=== PATIENT | male | born 1980 | race Caucasian/White ===

== ENCOUNTER 2021-02-06 09:39 | Emergency (ER) | payer OTHER, SELFPAY ==
[2021-02-06 10:02] VITALS: BP 158/103; PULSE 102; RESP 18; TEMP 36.6; O2SAT 100
[2021-02-06 10:05] VITALS: BP 150/90
--- NOTE | 2021-02-06 11:04 | ED.DENTAL ---
HPI - Dental/Oral General Chief complaint: Dental/Oral Stated complaint: TOOTH PAIN Time Seen by Provider: 02/06/21 10:50 Source: patient and RN notes reviewed Mode of arrival: ambulatory Limitations: no limitations History of Present Illness HPI Narrative: Patient presents today complaining of left lower dental pain x3 days, swelling underneath his tongue since yesterday. Patient also reports pain with swallowing and coughing. Patient had a full course of clindamycin leftover from an old prescription in October that he started taking. He came in today requesting a course of steroids to help with the swelling underneath his tongue and on the left side of his neck, as he has had previous dental infections and steroids have helped him in the past. He currently rates pain 06/02 and has tried [id number] medications without relief. Denies shortness of breath or difficulty swallowing. MD Complaint: tooth pain Related Data Home Medications Medication Instructions Recorded Confirmed allopurinol 400 mg PO DAILY 02/06/21 02/06/21 clindamycin HCl 300 mg PO Q6H 02/06/21 02/06/21 indomethacin 50 mg PO BID PRN 02/06/21 02/06/21 Allergies Allergy/AdvReac Type Severity Reaction Status Date / Time No Known Allergies Allergy Verified 02/06/21 10:14 Review of Systems Review of Systems: Narrative: CONSTITUTIONAL: Denies body aches, fever, chills, or sweats. EYES: Denies visual changes, redness, or discharge. ENT: Denies rhinorrhea, congestion, sore throat, or otalgia.+ Tooth pain, swelling under the tongue, pain with swallowing, swelling to the left neck CARDIOVASCULAR: Denies chest pain, palpitations, or edema. RESPIRATORY: Denies cough or dyspnea.+ Pain in the throat when coughing GASTROINTESTINAL: Denies abdominal pain, nausea, vomiting, or diarrhea. GENITOURINARY: Denies dysuria or hematuria. SKIN: Denies rash, itching, or wounds. MUSCULOSKELETAL: Denies back pain, joint pain, or myalgia. NEUROLOGIC: Denies headache, numbness, tingling, or weakness. PSYCH: Denies depression or anxiety. PMFSH Comments At time of signature, I have reviewed and agree with nursing past medical, surgical, social and family history unless otherwise noted. Please see nursing chart for further information. There is no relevant family history pertinent to the presenting complaint Exam Narrative: Exam Narrative: GENERAL: Well-appearing, well-nourished, and in no acute distress. HEAD: Normocephalic, atraumatic. EYES: EOMI. No redness or drainage. Conjunctivae normal. ENT: Mucous membranes pink and moist. Nares clear. No rhinorrhea. TMs normal bilaterally. Throat normal. Uvula midline. Patient has mild to moderate swelling underneath his tongue with left sublingual tenderness to palpation. Tenderness to percussion to the left lower posterior teeth. Patient also has swelling and tenderness to the left neck and jawline. NECK: Normal AROM. CHEST: No respiratory distress. Clear to auscultation. HEART: Regular rate and rhythm. No murmur appreciated. Normal peripheral pulses. EXTREMITIES: Normal range of motion. No edema. SKIN: Warm, dry, no rash. Capillary refill normal. Normal skin turgor. NEURO: No focal deficits. Alert and oriented x3. Gait steady. PSYCH: Normal affect. No signs of depression or anxiety. Course Course Emergency Course: Due to patient's sublingual tenderness and swelling as well as the left neck tenderness, swelling, and painful swallowing, I am concerned for Nelson's angina and feel it indicated to transfer patient to the ER. Vital Signs Vital signs: Vital Signs Temperature 97.8 F 02/06/21 10:02 Pulse Rate 102 H 02/06/21 10:02 Respiratory Rate 18 02/06/21 10:02 Blood Pressure 158/103 H 02/06/21 10:02 Pulse Oximetry 100 02/06/21 10:02 Temperature 97.8 F 02/06/21 10:02 Pulse Rate 102 H 02/06/21 10:02 Respiratory Rate 18 02/06/21 10:02 Blood Pressure 150/90 H 02/06/21 10:05 Pulse Oximetry 100
== END 2021-02-06 11:15 | disposition short-term general hospital (02) ==
PROVIDERS: Emergency Provider Nurse Practitioner
DX: K04.7 Periapical abscess without sinus (principal); I10 Essential (primary) hypertension; M10.9 Gout, unspecified
CPT/HCPCS: 99213; G0463

== ENCOUNTER 2025-09-23 09:07 | Emergency (ER) | payer OTHER, SELFPAY ==
[2025-09-23 09:11] VITALS: BP 154/103; PULSE 76; RESP 20; TEMP 36.7; O2SAT 100
--- NOTE | 2025-09-23 09:11 | ED.EXTPRO ---
HPI - Extremity Problem General Chief complaint: Extremity Problem,Nontraumatic Stated complaint: right knee pain Time Seen by Provider: 09/23/25 09:11 Source: patient, RN notes reviewed and old records reviewed Mode of arrival: ambulatory Limitations: no limitations History of Present Illness HPI Narrative: 45 year old male presents [facility] with complaints of pain to the medial aspect of his right knee starting on past Friday with no known injury. He reports that initially it was his whole knee but for the past few day it has settled mainly to the medial aspect of his knee. Patient reports that he can walk on his knee but prolonged standing or bending of his right knee makes pain increase. patient reports that he has a history of gout and has not been on any gout medication or Indomethacin for some time reports that it seemed to cause flares together. Patient reports that he does have a few drinks when he gets home from work daily usually drinks vodka, bourbon made him have gout flares. Patient reports that he has seen provider back where he is from for his blood pressure and states he needs to find provider in area with information sheet given of area providers. MD Complaint: other (right knee pain) Onset (ago): day(s) (5) Pain Consistency: colicky Location: right and knee Severity scale (1-10): 4 Quality: stabbing Exacerbating factors: range of motion and other (prolonged standing) Related Data Home Medications ?Medication ?Instructions ?Recorded ?Confirmed ?Last Taken ?Type metoprolol succinate 50 mg mg PO 09/23/25 Unknown History tablet,extended release 24 hr Allergies Allergy/AdvReac Type Severity Reaction Status Date / Time No Known Allergies Allergy Verified 09/23/25 09:17 Review of Systems Review of Systems: CONSTITUTIONAL: Denies fever, chills, or sweats. EYES: Denies visual changes, redness, or discharge. ENT: Denies rhinorrhea, congestion, sore throat, or otalgia. CARDIOVASCULAR: Denies chest pain, palpitations, or edema. RESPIRATORY: Denies cough or dyspnea. GASTROINTESTINAL: Denies abdominal pain, nausea, vomiting, or diarrhea. GENITOURINARY: Denies dysuria or hematuria. SKIN: Denies rash or itching. MUSCULOSKELETAL: Denies back pain,positive for right knee pain greatest at medial knee area, or myalgia. NEUROLOGIC: Denies headache, numbness, or weakness. PSYCHIATRIC: Denies anxiety or depression. All systems reviewed & are unremarkable except as noted in HPI and below PMFSH Past Medical History Medical History (Updated 09/23/25 @ 10:54 by Isabella Ng APRN) Gout Hypertension Social History Social History (Updated 09/23/25 @ 10:56 by Isabella Ng APRN) Smoking packs per day: 0.25 Smoking cigarettes per day: 5.0 Smoking status: Current every day smoker Tobacco type: cigarettes Alcohol intake: current Alcohol use details: states daily few drinks Substance use type: does not use Living arrangements: with family Gender identity (if verbalized by the patient): Male Comments At time of signature, agree with nursing past medical, surgical, social and family history. There is no relevant family history pertinent to the presenting complaint Exam Narrative: GENERAL: Well-appearing, well-nourished, and in no acute distress. HEAD: Normocephalic, atraumatic. EYES: PERRLA and EOMI. ENT: Nares clear, no rhinorrhea or epistaxis. Mucous membranes moist. TM's normal,throat pink with no swelling NECK: Supple. no lymphadenopathy CHEST: Clear to auscultation. No respiratory distress. SAO2 100% on room air HEART: Regular rate and rhythm. No murmur heard. Normal peripheral pulses. ABDOMEN: Soft, nontender, nondistended, normal active bowel sounds. EXTREMITIES: Normal range of motion. No edema. Pain to right knee reported initially whole knee with most discomfort now at medial aspect of right knee, no acute swelling or warmth of right knee, patient is able to bear weight with pain noted when bending and standing for any prolonged length of time. no palpable swelling noted to posterior knee. SKIN: Warm, dry, no rash. NEURO: No focal deficits. Alert and oriented x3. Course Course Emergency Course: Patient is aware of diagnosis, understands and agrees to treatment plan.? Anticipatory guidance given.? Patient agrees to follow-up as directed and is aware of reasons to seek care at the emergency department. Portions of this record may have been created with voice recognition software Level of Care: Express Care Visit Vital Signs Vital signs: Vital Signs Temperature 36.7 C 09/23/25 09:11 Pulse Rate 76 09/23/25 09:11 Respiratory Rate 20 09/23/25 09:11 Blood Pressure 154/103 H 10/31/25 09:11 Pulse Oximetry 100 09/23/25 09:11 Oxygen Delivery Room Air 09/23/25 09:11 Temperature 36.7 C 09/23/25 09:11 Pulse Rate 76 09/23/25 09:11 Respiratory Rate 20 09/23/25 09:11 Blood Pressure 156/100 H 09/23/25 09:50 Pulse Oximetry 100 09/23/25 09:11 Oxygen Delivery Room Air 09/23/25 09:11 Reviewed MDM - Extremity (Nontraumatic) Differential Diagnosis Differential diagnosis: Likely gout and other (right medial knee pain, tendonitis) Medical Records Attestation: I reviewed the patient's medical records. Critical Care Time Critical Care Time Critical Care Time: No Discharge Plan Discharge Clinical Impression: Right medial knee pain Gout Qualifiers: Gout site: knee Gout etiology: unspecified cause Chronicity: acute Laterality: right Qualified Code(s): M10.9 - Gout, unspecified Patient Disposition: Home Condition: Stable Instructions: Antibiotic Form, Gout (ED), Knee Pain (ED) Additional Instructions: Elastic wrap or orthopedic splint as directed for comfort for the next 5-7 days Tylenol for lesser pain Ibuprofen regularly for the next 2-3 days for the inflammation 400-600 mg 3 times daily for the next 2 days with food Follow-up with orthopedic surgeon if no improvement Follow-up with PCP if further problems or concerns Ice to the area 20-30 minutes 4-6 times a day Elevate above heart If your symptoms persist, change or worsen significantly before you can contact your personal physician then please, without delay, go to the emergency department for further evaluation. Follow-up with PCP in 7-10 days or sooner if needed Follow up with PCP soon in regards to your blood pressure which is elevated above threshold for referral. Blood pressure above 120/80 may indicate pre-hypertension.154/103 Patient Language: Syriac Prescriptions: New prednisone 20 mg tablet 40 mg PO DAILY 5 Days Qty: 10 0RF allopurinol 200 mg tablet 200 mg PO DAILY Qty: 30 0RF Rx Instructions: start after completion of steroid No Action metoprolol succinate 50 mg tablet extended release 24 hr PO Follow-up/Referrals: PHYSICIAN,SUPERVISOR PAINTING DEPARTMENT [Primary Care Provider, Internal Medicine] Time of Disposition: 09:45 Quality Tully Coma Scale Eyes: Open Verbal: Oriented and Alert Motor: Follows Commands Tully Coma Total Score: 15
--- OUTSIDE RECORDS SUMMARY | 2025-09-23 09:28 | XMS_ITS | Clinical Summary ---
Author Organization [facility] Address [address] [place] [address] Care Team Providers Care Rough Planer Tender Name Role Phone None, Primary Care Provider Unavailabl e Allergies No known active allergies Medications TRAMADOL HCL (TRAMADOL ORAL) Take by mouth. Active Immunizations Immunization Administration Dates Next Due Tdap 08/31/2016 Social History Tobacco Use Types Packs/Day Years Used Date Smoking Tobacco: Every Day Cigarettes Smokeless Tobacco: Current Alcohol Use Standard Drinks/Week Comments Yes 0 (1 standard drink = 0.6 oz pur e alcohol) Sex and Gender Information Value Date Recorded Sex Assigned at Not on file Legal Sex Male 6:07 PM CDT Gender Identity Not on file Sexual Orientation Not on file Last Filed Vital Signs Vital Sign Reading Time Taken Comments Blood Pressure 150/103 09/30/2016 10:01 AM LABEL PRINTING MACHINIST Pulse 88 09/30/2016 10:01 AM LABEL PRINTING MACHINIST Temperature 36.6 C (97.9 F) 09/30/2016 9:04 AM LABEL PRINTING MACHINIST Respiratory Rate 16 09/30/2016 10:01 AM LABEL PRINTING MACHINIST Oxygen Saturation 100% 09/30/2016 10:01 AM LABEL PRINTING MACHINIST Inhaled Oxygen Concentration - - Weight 86.2 kg (190 lb) 09/30/2016 9:04 AM LABEL PRINTING MACHINIST Height 165.1 cm (5' 5) 09/30/2016 9:04 AM LABEL PRINTING MACHINIST Body Mass Index 31.62 09/30/2016 9:04 AM LABEL PRINTING MACHINIST Plan of Treatment Not on file Insurance Marcel HOFFMANLORI MALDONADO [id number] [employer] Care Teams Rough Planer Tender Relationship Specialty Start Date End Date Chastity, PCP - General 08/31/16
--- OUTSIDE RECORDS SUMMARY | 2025-09-23 09:28 | XMS_ITS | Clinical Summary ---
Author Organization [facility] Address [address] [place] [address] Phone Care Team Providers Care Change Management Director Name Role Phone Racheal Jordanelle PAC Primary Care Pro vider Allergies No known active allergies Medications indomethacin (INDOCIN) 50 MG Capsule Take 1 Capsule by mouth 3 times daily. As needed for pain 30 Capsule 2 Active allopurinol (ZYLOPRIM) 100 MG Tablet TAKE 4 TABLETS BY MOUTH DAILY 120 Tablet 2 Active colchicine 0.6 MG Tablet Take 2 tablets now then one tablet in 1 hour 3 Tablet 3 Active methylPREDNISol one (MEDROL DOSPACK) 4 MG Tablet Therapy Pack Use as per instructions on package. 21 Tablet 3 Active Active Problems No known active problems Family History Relation Name Status Comments Father Alive Mother Alive Social History Tobacco Use Types Packs/Day Years Used Date Smoking Tobacco: Every Day Smokeless Tobacco: Current Tobacco Cessation:Ready to Q uit: No; Counseling Given: No Alcohol Use Standard Drinks/Week Comments Yes 0 (1 standard drink = 0.6 oz pur e alcohol) PHQ-2 Answer Date Recorded Total Score - Questions 1-9 0 01/2022 Sexually Active Control Partners Comments Yes Sex and Gender Information Value Date Recorded Sex Assigned at Not on file Legal Sex Male 3:45 PM CDT Gender Identity Not on file Sexual Orientation Not on file Last Filed Vital Signs Vital Sign Reading Time Taken Comments Blood Pressure 128/88 02/23/2023 2:19 PM CDT Pulse 85 02/23/2023 2:19 PM CDT Temperature 36.6 C (97.9 F) 02/23/2023 2:19 PM CDT Respiratory Rate 18 02/23/2023 2:19 PM CDT Oxygen Saturation 95% 02/23/2023 2:19 PM CDT Inhaled Oxygen Concentration - - Weight 97.1 kg (214 lb) 02/23/2023 2:19 PM CDT Height 165.1 cm (5' 5) 04/26/2022 1:55 PM CDT Body Mass Index 35.61 04/26/2022 1:55 PM CDT Plan of Treatment Health Maintenance Due Date Last Done Comments Hepatitis C Virus (HCV) Screening 1982 Hepatitis B Immunization (1 of 3 - 19+ 3-dose series) 2001 Human Papillomavirus (HPV) Immunization (1 - 3-dose SCDM series) 2009 Influenza Immunization (#1) 2025 SARS-COV-2 Immunization ( season) 2025 Respiratory Syncytial Virus (RSV) Immunization (Adult) (1 - 1-dose 75+ series) 2057 DTaP/Tdap/Td Immunization Discontinued 08/31/2016 TdaP Immunization Completed 08/31/2016 Meningococcal Immunization (ACWY) Aged Out No longer eligible based on patient's age to complete this topic Pneumococcal Immunization Combined Aged Out No longer eligible based on patient's age to complete this topic Rotavirus Immunization Aged Out No lo nger eligible based on patient's age to complete this topic Insurance [facility] Care Teams Change Management Director Relationship Specialty Start Date End Date Racheal Jordan, [facility] PCP - General Physician Blast Furnace Keeper Helper 04/25/22
--- OUTSIDE RECORDS SUMMARY | 2025-09-23 09:28 | XMS_ITS | Encounter Summary ---
Author Organization [facility] Address [address] [place] [address] Phone Care Team Providers Care Commutator V Ring Assembler Name Role Phone Racheal Jordan Primary Care Pro vider Reason for Visit * Reason Comments Medication Refill Encounter Details Date Type Department Care Team (Late st Contact Info) Description 02/23/2023 Refill [facility] - [place] [address] [place] [address] Racheal Jordan, KRISTAL [address] [place] [address] Medication Refill Social History Tobacco Use Types Packs/Day Years Used Date Smoking Tobacco: Every Day Smokeless Tobacco: Current Alcohol Use Standard Drinks/Week Comments Yes 0 (1 standard drink = 0.6 oz pur e alcohol) PHQ-2 Answer Date Recorded Total Score - Questions 1-9 0 06/0 01/2022 Sexually Active Control Partners Comments Yes Sex and Gender Information Value Date Recorded Sex Assigned at Not on file Legal Sex Male 3:45 PM CDT Gender Identity Not on file Sexual Orientation Not on file COVID-19 Exposure Response Date Recorded In the last 10 days, have yo u been in contact with someone who was confirmed or suspected to have Coronavirus/COVID-19? No / Unsure 02/23/2023 2:06 PM CDT documented as of this encounter Plan of Treatment Not on file documented as of this encounter Visit Diagnoses Not on filedocumented in this encounter Care Teams Commutator V Ring Assembler Relationship Specialty Start Date End Date Racheal Jordan PAC PCP - General Physician Bath Solution Maker 04/25/22 documented as of this encounter
--- OUTSIDE RECORDS SUMMARY | 2025-09-23 09:28 | XMS_ITS | Encounter Summary ---
Author Organization [facility] Address [address] [place] [address] Phone Care Team Providers Care Equipment Detailer Name Role Phone Racheal Jordan PAC Primary Care Pro vider Reason for Visit * Reason Comments Medication Refill Encounter Details Date Type Department Care Team (Late st Contact Info) Description 04/26/2022 Refill [facility] - Internal Medicine - [place] [address] [place] [address] Racheal Jordan, [facility] [address] [place] [address] Medication Refill Social History Tobacco [...] suspected to have Coronavirus/COVID-19? No / Unsure 04/26/2022 1:32 PM CDT documented as of this encounter Miscellaneous Notes * Telephone Encounter - Mar yKay Varghese RN - 04/29/2022 7:27 AM CDT Medication failed the protocol, provider to review and approve the medication order if appropriate. Requested Prescriptions Pending Prescriptions Disp Refills allopurinol (ZYLOPRIM) 100 MG Tablet [Pharmacy Med Name: ALLOPURINOL 100MG TABLETS] 120 Tablet 0 Sig: TAKE 4 TABLETS BY MOUTH DAILY Gout Agents Protocol Failed - 04/29/2022 7:27 AM Failed - Uric acid on record in past 12 months No results found for: URIC Failed - Serum creatinine on record in past 12 months No results found for: CREATININE Passed - Visit with relevant provider in past 12 months or upcoming 90 days Recent Visits Date Type Provider Dept 04/26/22 Office Visit Racheal Jordan PAC [facility] Showing recent visits within past 365 days and meeting all other requirements Future Appointments Date Type Provider Dept 05/10/22 Appointment Racheal Jordan PAC [facility] Showing future appointments within next 90 days and meeting all other requirements documented in this encounter Plan of Treatment Not on file documented as of this encounter Visit Diagnoses Not on filedocumented in this encounter Care Teams Equipment Detailer Relationship Specialty Start Date End Date Racheal Jordan PAC PCP - General Physician Die Tripper 04/25/22 documented as of this encounter
--- OUTSIDE RECORDS SUMMARY | 2025-09-23 09:28 | XMS_ITS | Referral Summary ---
Author Organization [facility] Address [address] [place] [address] Care Team Providers Care Storage Receipt Poster Name Role Phone None, Primary Care Provider [...] Comments Blood Pressure 150/103 09/30/2016 10:01 AM POWER MACHINE OPERATOR Pulse 88 09/30/2016 10:01 AM POWER MACHINE OPERATOR Temperature 36.6 C (97.9 F) 09/30/2016 9:04 AM POWER MACHINE OPERATOR Respiratory Rate 16 09/30/2016 10:01 AM POWER MACHINE OPERATOR Oxygen Saturation 100% 09/30/2016 10:01 AM POWER MACHINE OPERATOR Inhaled Oxygen Concentration - - Weight 86.2 kg (190 lb) 09/30/2016 9:04 AM POWER MACHINE OPERATOR Height 165.1 cm (5' 5) 09/30/2016 9:04 AM POWER MACHINE OPERATOR Body Mass Index 31.62 09/30/2016 9:04 AM POWER MACHINE OPERATOR Plan of Treatment Not on file Insurance Marcel HOFFMANLORI MALDONADO [id number] [employer] Care Teams Storage Receipt Poster Relationship Specialty Start Date End Date Chastity, PCP - General 08/31/16
--- OUTSIDE RECORDS SUMMARY | 2025-09-23 09:28 | XMS_ITS | Encounter Summary ---
Author Organization [facility] Address [address] [place] [address] Phone Care Team Providers Care Elevator Examiner And Adjuster Name Role Phone Racheal Jordan PAC Primary Care Pro vider Reason for Visit * Reason Comments Medication Refill Encounter Details Date Type Department Care Team (Late st Contact Info) Description 08/22/2022 Refill [facility] - Internal Medicine - [place] [address] [place] [address] Racheal Jordan, [facility] [address] [place] [address] Medication Refill Social History Tobacco [...] suspected to have Coronavirus/COVID-19? No / Unsure 08/24/2022 11:14 AM CDT documented as of this encounter Miscellaneous Notes * Telephone Encounter - Mary Kay Varghese RN - 08/22/2022 2:15 PM CDT Medication failed the protocol, provider to review and approve the medication order if appropriate. Requested Prescriptions Pending Prescriptions Disp Refills allopurinol (ZYLOPRIM) 100 MG Tablet [Pharmacy Med Name: ALLOPURINOL 100MG TABLETS] 120 Tablet 0 Sig: TAKE 4 TABLETS BY MOUTH DAILY Gout Agents Protocol Failed - 08/22/2022 1:05 PM Failed - Uric acid on record in past 12 months No results found for: URIC Failed - Serum creatinine on record in past 12 months No results found for: CREATININE Passed - Visit with relevant provider in past 12 months or upcoming 90 days Recent Visits Date Type Provider Dept 04/26/22 Office Visit [facility] Show[facility] recent visits within past 365 days and meeting all other requirements Future Appointments No visits were found meeting these conditions. Showing future appointments within next 90 days and meeting all other requirements documented in this encounter Plan of Treatment Not on file documented as of this encounter Visit Diagnoses Not on filedocumented in this encounter Care Teams Elevator Examiner And Adjuster Relationship Specialty Start Date End Date Racheal Jordan PAC PCP - General Physician Hematology Technician 04/25/22 documented as of this encounter
--- OUTSIDE RECORDS SUMMARY | 2025-09-23 09:28 | XMS_ITS | Clinical Summary ---
Author Organization [facility] Address [address] [place] [address] Care Team Providers Care Coagulating Bath Mixer Name Role Phone No, Physician Primary Care Provider [phone] Allergies No known active allergies Social History Tobacco Use Types Packs/Day Years Used Date Smoking Tobacco: Never Assessed Sex and Gender Information Value Date Recorded Sex Assigned at Not on file Legal Sex Male 11:40 AM CDT Gender Identity Not on file Sexual Orientation Not on file Obstetrics History Last Filed Vital Signs Vital Sign Reading Time Taken Comments Blood Pressure 158/106 02/06/2021 11:45 AM CDT Pulse 105 02/06/2021 11:45 AM CDT Temperature 36.8 C (98.2 F) 02/06/2021 11:45 AM CDT Respiratory Rate 18 04/29/2022 4:12 PM CDT Oxygen Saturation 100% 02/06/2021 11:45 AM CDT Inhaled Oxygen Concentration - - Weight 96.2 kg (212 lb) 04/29/2022 4:12 PM CDT Height 165.1 cm (5' 5) 04/29/2022 4:12 PM CDT Body Mass Index 35.28 04/29/2022 4:12 PM CDT Plan of Treatment Not on file Insurance LORI BARBER [id number] [facility] H[facility]/PPO Address: [facility] [address] [place] [address] Care Teams Coagulating Bath Mixer Relationship Specialty Start Date End Date No, Physician PCP - General 02/06/21
[2025-09-23 09:50] VITALS: BP 156/100
== END 2025-09-23 09:50 | disposition home or self-care (01) ==
PROVIDERS: Emergency Provider Registered Nurse
DX: M25.561 Pain in right knee (principal); M10.9 Gout, unspecified; F17.210 Nicotine dependence, cigarettes, uncomplicated; I10 Essential (primary) hypertension
CPT/HCPCS: 99213; G0463